=== PATIENT | female | born 2005 | race Caucasian/White ===

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

== ENCOUNTER 2024-10-28 03:28 | Emergency (ER) | payer MEDICAID, SELFPAY ==
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
[2024-10-28 03:27] VITALS: PULSE 116; RESP 20; TEMP 36.2; O2SAT 98
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
[2024-10-28 04:24] LABS: Abs Immature Grans 0.05 10^3/uL (0.0-0.06); HCT 40.1 % (36.0-46.0); HGB 13.4 g/dL (11.2-15.7); Immature Grans % 0.6 %; MCH 25.7 pg (27.0-33.0); MCHC 33.4 % (32.0-36.0); MCV 77 fL (80-95); MPV 8.5 fL (8.0-11.0); Platelet Count 317 10^3/uL (130-400); RBC 5.21 10^6/uL (3.93-5.22); RDW 14.0 % (11.7-14.6); RDW-SD 38.9 fL; WBC 8.29 10^3/uL (4.4-10.8)
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
[2024-10-28 04:37] LABS: Cannabinoids THC Negative (Negative); METHADONE URINE SCREEN Negative (Negative)
[2024-10-28 04:48] LABS: Acetaminophen < 2 ug/mL (10-30); Salicylate < 2.8 mg/dL (<2.8)
[2024-10-28 04:54] LABS: ALT 43 U/L (14-59); AST 24 U/L (15-37); Albumin 3.6 g/dL (3.4-5.0); Alkaline Phosphatase 86 U/L (46-116); Anion Gap 14.4 mmol/L (3-11); BUN 4 mg/dL (7-18); Bilirubin, Total 0.3 mg/dL (0.2-1.0); CO2 23.6 mmol/L (21.0-32.0); Calcium 8.6 mg/dL (8.5-10.1); Chloride 109 mmol/L (98-107); Estimated GFR 108.78 (mL/min/1.73m2); Glucose 107 mg/dL (74-106); Potassium 3.3 mmol/L (3.5-5.1); Sodium 147 mmol/L (136-145); Total Protein 7.2 g/dL (6.4-8.2)
[2024-10-28 07:01] VITALS: BP 120/56; PULSE 89; RESP 16; O2SAT 98
--- NOTE | 2024-10-28 07:17 | W.EDPROG ---
Date of service: 10/28/24 Time of Service: 07:18 Medical Decision Making I received signout on this patient arrived intoxicated, crying, stating she wanted to step out in front of a car. She is medically cleared and is pending mental health evaluation. [id number] I spoke to Artie from [facility] [place]. She helped to arrange a phone check in with [facility] [place] this afternoon. Patient will go home with her mother. She will call the crisis team this afternoon at 2 or 3 PM: [phone]. Patient had pain in her right hand. She had had a complete right hand radiographs obtained which was reassuring. She had no ecchymosis. She was tender over her ring and little finger MCP joints. She likely has a contusion close I treated her with ibuprofen and acetaminophen. I advised ice 20 minutes on 20 minutes off. I advised her to return for symptoms worsen. She is discharged with an empiric trial of expectant outpatient management. Discharge Plan Disposition Patient Disposition: Home Discharge Details Clinical Impression: Alcohol intoxication, Suicidal ideation Primary Care Provider: Unknown,Unknown ED Provider: Loc Jhaveri Home Meds and New Rx's Prescriptions: Continued norgestimate-ethinyl estradiol [Sprintec (28)] 0.25-0.035 mg tablet 1 tab PO DAILY Qty: 84 3RF Discharge Instructions Additional Instructions: You were seen in the emergency department for your thoughts of hurting yourself. You are cleared by [facility] human services. Please give them a call this afternoon at 2 to 3 PM: [phone]. As we discussed if you do not feel safe at home or if you have any other concerns at this return to the emergency department. Your x-ray showed no sign of any fractures in your hand. You likely have a bruise. Please ice your hand for 20 minutes on 20 minutes off today. Please return if you develop worsening pain. For your pain please take medications as follows: 1. Take acetaminophen (Tylenol), 1,000 mg (two 500 mg tabs) every 6 hours [2. Take ibuprofen (Advil), 400 mg every 6 hours.]
[2024-10-28 08:22] VITALS: BP 121/59; PULSE 86; RESP 16; O2SAT 98
[2024-10-28] MEDS: Ibuprofen 600 MG TAB PO (08:26)
[2024-10-28] MEDS: Acetaminophen 500 MG TAB 1000 MG PO (08:26)
[2024-10-28 08:33] VITALS: BP 121/59; PULSE 86; RESP 16; O2SAT 98
== END 2024-10-28 08:34 | disposition home or self-care (01) ==
PROVIDERS: Emergency Medicine; Emergency Provider Emergency Medicine
DX: F10.920 Alcohol use, unspecified with intoxication, uncomplicated (principal); R45.851 Suicidal ideations
CPT/HCPCS: 99284; 99283; 36415; 81025; 00123; 80053; 80307; 73130; 80320; 80329; 84703; 85025